=== PATIENT | male | born 2000 | race Caucasian/White ===

== ENCOUNTER 2022-08-03 12:52 | Emergency (ER) | payer SELFPAY ==
[2022-08-03] MEDS ORDERED: Sodium Chloride 0.9% 2.5 ML Syringe FLUSH PRN (13:25)
[2022-08-03] MEDS ORDERED: Sodium Chloride 0.9% 10 ML Syringe FLUSH PRN (13:25)
[2022-08-03] MEDS ORDERED: Sodium Chloride 0.9% 1,000 ML IV ONE (13:25)
[2022-08-03] MEDS ORDERED: Acetaminophen/HYDROcodone 325-5 MG Tab PO ONE (13:26)
[2022-08-03 14:32] LABS: CARBON DIOXIDE,CO2 28.4 mmol/L (21.0-32.0); POTASSIUM,K 4.6 mmol/L (3.5-5.1)
[2022-08-03] MEDS ORDERED: Iopamidol 755 MG/ML 500 ML Multipack Bottle IVPUSH STA (14:57)
[2022-08-03] MEDS ORDERED: Ibuprofen 600 MG Tab PO ONE (16:02)
== END 2022-08-03 16:15 | disposition home or self-care (01) ==
LOC: MW.ED 12:52
DX: R10.9 Unspecified abdominal pain (principal)
CPT/HCPCS: 36415; 71045; 74177; 80053; 80305; 80307; 81003; 83605; 83690; 84484; 85025; 85610; 93005; 96360; 99284; A9270; J7030; Q9967

== ENCOUNTER 2022-08-05 17:15 | Emergency (ER) | payer SELFPAY ==
[2022-08-05 20:11] LABS: CORONAVIRUS COVID-19 NAA NEGATIVE (NEGATIVE); INFLUENZA A NAA NEGATIVE (NEGATIVE); INFLUENZA B NAA NEGATIVE (NEGATIVE); RESPIRATORY SYNCYTIAL VIR NAA NEGATIVE (NEGATIVE)
[2022-08-05] MEDS ORDERED: Ondansetron 4 MG/2 ML SDV IVPUSH ONE (23:16)
[2022-08-05] MEDS ORDERED: Sodium Chloride 0.9% 1,000 ML IV ONE (23:16)
[2022-08-05] MEDS ORDERED: Loperamide 2 MG Cap PO STA (23:16)
[2022-08-06 00:05] LABS: POTASSIUM,K 3.7 mmol/L (3.5-5.1)
== END 2022-08-06 00:53 | disposition home or self-care (01) ==
LOC: MW.ED 17:15
DX: K52.9 Noninfective gastroenteritis and colitis, unspecified (principal); Z20.822 Contact with and (suspected) exposure to COVID-19
CPT/HCPCS: 0241U; 36415; 80053; 83690; 85025; 96361; 96374; 99284; A9270; J2405; J7030

== ENCOUNTER 2022-08-13 05:03 | Emergency (ER) | payer SELFPAY | END 2022-08-13 07:30 | disposition home or self-care (01) | LOC: MW.ED 05:03 | DX: K59.00 Constipation, unspecified (principal) | CPT/HCPCS: 74018; 74018-26; 99284 ==